=== PATIENT | female | born 1955 | race Caucasian/White ===

== ENCOUNTER 2020-08-20 09:50 | Emergency (ER) | payer OTHER, MEDICARE ==
[~2020-08-20] VITALS: Ht 172.7 cm; Wt 56.8 kg
[2020-08-20 10:07] VITALS: BP 144/90
[2020-08-20] MEDS ORDERED: predniSONE 20 mg tablet PO ONE (10:15)
[2020-08-20] MEDS ORDERED: diphenhydrAMINE 50 mg/ml inj IM ONE (11:00)
[2020-08-20] MEDS ORDERED: LORazepam 2 mg/ml vial IM ONE (11:00)
[2020-08-20] MEDS ORDERED: PRED20TA PO (11:10)
== END 2020-08-20 11:37 | disposition home or self-care (01) ==
LOC: ER 09:51
DX: L25.9 Unspecified contact dermatitis, unspecified cause (principal); R10.11 Right upper quadrant pain; R07.89 Other chest pain; Z79.899 Other long term (current) drug therapy
CPT/HCPCS: 71046; 93005; 96372; 99284; J1200; J2060; J7512